=== PATIENT | male | born 1955 | race Caucasian/White ===

== ENCOUNTER 2017-06-27 12:50 | Emergency (ER) | payer BC ==
[2017-06-27] MEDS ORDERED: Ketorolac INJ* 30 MG/ML 1 ML VIAL IV PUSH ONE (14:01)
[2017-06-27 14:53] LABS: Hematocrit 37 % (42-52); Mean Corpuscular HGB Conc 35 g/dl (31-36); Mean Corpuscular Hemoglobin 33 pg (27-31); Mean Corpuscular Volume 94 fL (80-94); Mean Platelet Volume 8 um3 (7.4-10.4); Red Blood Count 3.99 10^6/ul (4.0-5.4); Red Cell Distribution Width 13 % (10.5-15); White Blood Count 8.9 10^3/ul (3.5-10.8)
[2017-06-27 15:09] LABS: Albumin 3.6 g/dL (3.2-5.2); BUN/Creatinine Ratio 32.9 (8-20); EGFR African American 127.4 (>60); EGFR Non-African American 99.1 (>60); Globulin 3.4 g/dL (2-4); Total Bilirubin 0.5 mg/dL (0.2-1.0)
[2017-06-27] MEDS ORDERED: Iohexol 300* (CONTRAST) 10 ML SDV IV ONE (15:14)
[2017-06-27 15:45] VITALS: BP 111/68
--- NOTE | 2017-06-27 16:02 | RAD ---
INDICATION: Redness and swelling on the LEFT side of the neck. Fever and chills. Neck stiffness. Suspect corresponding insect bite 2 days ago. COMPARISON: April 14, 2016 cervical spine MRI. TECHNIQUE: Multidetector CT images skull base to lung apices with 50 mL Omnipaque 300 IV contrast. Multiplanar reformation. REPORT: Clear visualized lung apices. Artifact from dental amalgam. Dermal and subcutaneous tissue plane edema along the LEFT neck from the supraclavicular region to the mandibular ramus level. No loculated abscess collection evident. Patent dominant RIGHT and smaller LEFT internal jugular veins. Minimal atherosclerotic plaque without hemodynamic significant stenosis at the carotid bifurcations. Unremarkable pharyngeal mucosal space contours. Symmetric parapharyngeal fat. Unremarkable parotid and submandibular glands as well as the thyroid gland. Negative for neck adenopathy. Clear paranasal sinuses and mastoid air spaces. Unremarkable orbital contents. Negative for suspicious osseous lesions. Multilevel cervical degenerative spondylosis and facet joint osteoarthritis without significant interval change compared with the April 14, 2016 MRI. Disc space narrowing is advanced at C4-C5, C5-C6, and C6-C7. IMPRESSION: Dermal and subcutaneous tissue plane edema along the LEFT neck from the supraclavicular region to the mandibular ramus level. No loculated abscess collection evident. Negative for neck adenopathy.
[2017-06-27] MEDS ORDERED: Cephalexin CAP* 500 MG PO ONE (16:18)
[2017-06-27] MEDS ORDERED: Sulfamethox/Trimethoprim DS 800/160* TAB PO ONE (16:18)
--- NOTE | 2017-07-16 15:18 | ED ---
Michelle Cole Edward, scribed for Geovani Mitchell MD on 06/27/17 at 1341 . Skin Complaint - HPI Summary HPI Summary: 62 y/o male presents to ED c/o red rash on the L side of the neck starting a few weeks ago. Pt c/o neck pain and bilateral neck stiffness (hard to turn) secondary to the rash. The rash is also pruritic. Pt felt he was bit a couple of weeks ago - started as a small bump on the L side of the neck. The erythema, edema and neck pain has gotten worse since the bite amaya first appeared. The erythema spreads to the L shoulder and the chest. Denies sore throat, pain when opening and closing mouth, and drainage. Associated sx: fevers, chills, and diaphoresis. PMHx chronic back pain. No PMHx DM. NKDA. - History of Current Complaint Chief Complaint: EDRashSkinAbscess Time Seen by Provider: 06/27/17 13:40 Stated Complaint: BITE ON NECK Hx Obtained From: Patient Onset/Duration: Started Weeks Ago - 2, Still Present Timing: Constant, Lasting Weeks Pain Intensity: 5 Pain Scale Used: 0-10 Numeric Skin Location: Neck - L side Character: Swelling, Pruritus, Pain, Redness Associated Signs & Symptoms: Diaphoresis, Fever, Chills, Rash - Allergy/Home Medications Allergies/Adverse Reactions: Allergies Allergy/AdvReac Type Severity Reaction Status Date / Time No Known Allergies Allergy Verified 03/02/17 08:02 PMH/Surg Hx/FS Hx/Imm Hx Previously Healthy: No Endocrine/Hematology History: Denies: Hx Diabetes Cardiovascular History: Denies: Hx Hypertension, Hx Pacemaker/ICD History: Denies: Hx Renal Disease Musculoskeletal History: Reports: Hx Arthritis - SHOULDERS, HIPS, Hx Osteoporosis Sensory History: Reports: Hx Contacts or Glasses - READING Denies: Hx Hearing Aid Opthamlomology History: Reports: Hx Contacts or Glasses - READING Neurological History: Reports: Other Neuro Impairments/Disorders - PAIN CLINIC PATIENT Psychiatric History: Denies: Hx Panic Disorder - Surgical History Surgery Procedure, Year, and Place: right total hip replacement. Rt SHOULDER - RTC Hx Anesthesia Reactions: No Infectious Disease History: Denies: Traveled Outside the [place] in Last 30 Days - Family History Known Family History: Positive: Other - [place] Negative: Cardiac Disease, Diabetes - Social History Occupation: Retired Alcohol Use: None Alcohol Amount: 2-3 beers/day Hx Substance Use: No Substance Use Type: Reports: None Hx Tobacco Use: Yes Smoking Status (MU): Current Every Day Smoker Type: Cigarettes Amount Used/How Often: 4-5 cigarettes per day Length of Time of Smoking/Using Tobacco: 1970 Have You Smoked in the Last Year: Yes Review of Systems Positive: Fever, Chills, Skin Diaphoresis Negative: Erythema ENT: Other - No pain opening and closing mouth Negative: Sore Throat Negative: Chest Pain Negative: Shortness Of Breath, Cough Negative: Abdominal Pain, Vomiting, Nausea Negative: dysuria, hematuria Positive: Arthralgia - Neck pain and stiffness, Myalgia - Chronic back pain. Negative: Edema Positive: Rash - L side of neck. No drainage Neurological: Other - No dizziness All Other Systems Reviewed And Are Negative: Yes Physical Exam - Summary Physical Exam Summary: Constitutional: Well-developed, Well-nourished, Alert. (-) Distressed Skin: Warm, Dry. Cellulitis from 2 inches below the clavicle extending to the posterior midline cervical to the level of T1 and out to the L shoulder joint. It is hot to touch and there is no induration. HENT: Normocephalic; Atraumatic Eyes: Conjunctiva normal Neck: Musculoskeletal ROM normal neck. (-) JVD, (-) Stridor, (-) Tracheal deviation. Meningismus as a result of the skin infection. Cardio: Rhythm regular, rate normal, Heart sounds normal; Intact distal pulses; The pedal pulses are 2+ and symmetric. Radial pulses are 2+ and symmetric. (-) Murmur Pulmonary/Chest wall: Effort normal. (-) Respiratory distress, (-) Wheezes, (-) Rales Abd: Soft, (-) Tenderness, (-) Distension, (-) Guarding, (-) Rebound Musculoskeletal: (-) Edema Lymph: (-) Cervical adenopathy Neuro: Alert, Oriented x3 Psych: Mood and affect Normal Triage Information Reviewed: Yes Vital Signs On Initial Exam: Initial Vitals Temp Pulse Resp BP Pulse Ox 98.9 F 66 18 140/86 98 06/27/17 12:58 06/27/17 12:58 06/27/17 12:58 06/27/17 12:58 06/27/17 12:58 Vital Signs Reviewed: Yes Diagnostics - Vital Signs Vital Signs Temp Pulse Resp BP Pulse Ox 06/27/17 12:58 98.9 F 66 18 140/86 98 - Laboratory Lab Results: Lab Results 06/27/17 06/27/17 06/27/17 Range/Units 14:35 14:35 14:35 WBC 8.9 (3.5-10.8) 10^3/ul RBC 3.99 L (4.0-5.4) 10^6/ul Hgb 13.0 L (14.0-18.0) g/dl Hct 37 L (42-52) % MCV 94 (80-94) fL MCH 33 H (27-31) pg MCHC 35 (31-36) g/dl RDW 13 (10.5-15) % Plt Count 451 H (150-450) 10^3/ul MPV 8 (7.4-10.4) um3 Neut % (Auto) 70.3 (38-83) % Lymph % (Auto) 19.0 L (25-47) % Hale % (Auto) 8.7 (1-9) % Eos % (Auto) 1.1 (0-6) % Baso % (Auto) 0.9 (0-2) % Absolute Neuts (auto) 6.2 (1.5-7.7) 10^3/ul Absolute Lymphs (auto) 1.7 (1.0-4.8) 10^3/ul Absolute Monos (auto) 0.8 (0-0.8) 10^3/ul Absolute Eos (auto) 0.1 (0-0.6) 10^3/ul Absolute Basos (auto) 0.1 (0-0.2) 10^3/ul Absolute Nucleated RBC 0.01 10^3/ul Nucleated RBC % 0.1 INR (Anticoag Therapy) 0.97 (0.89-1.11) APTT 29.8 (26.0-36.3) seconds Sodium 135 (133-145) mmol/L Potassium 4.0 (3.5-5.0) mmol/L Chloride 104 (101-111) mmol/L Carbon Dioxide 24 (22-32) mmol/L Anion Gap 7 (2-11) mmol/L BUN 26 H (6-24) mg/dL Creatinine 0.79 (0.67-1.17) mg/dL Est GFR ( Amer) 127.4 (>60) Est GFR (Non-Af Amer) 99.1 (>60) BUN/Creatinine Ratio 32.9 H (8-20) Glucose 91 (70-100) mg/dL Lactic Acid (0.5-2.0) mmol/L Calcium 9.0 (8.6-10.3) mg/dL Total Bilirubin 0.50 (0.2-1.0) mg/dL AST 32 (13-39) U/L ALT 57 H (7-52) U/L Alkaline Phosphatase 91 (34-104) U/L Total Protein 7.0 (6.4-8.9) g/dL Albumin 3.6 (3.2-5.2) g/dL Globulin 3.4 (2-4) g/dL Albumin/Globulin Ratio 1.1 (1-3) 06/27/17 Range/Units 14:35 WBC (3.5-10.8) 10^3/ul RBC (4.0-5.4) 10^6/ul Hgb (14.0-18.0) g/dl Hct (42-52) % MCV (80-94) fL MCH (27-31) pg MCHC (31-36) g/dl RDW (10.5-15) % Plt Count (150-450) 10^3/ul MPV (7.4-10.4) um3 Neut % (Auto) (38-83) % Lymph % (Auto) (25-47) % Hale % (Auto) (1-9) % Eos % (Auto) (0-6) % Baso % (Auto) (0-2) % Absolute Neuts (auto) (1.5-7.7) 10^3/ul Absolute Lymphs (auto) (1.0-4.8) 10^3/ul Absolute Monos (auto) (0-0.8) 10^3/ul Absolute Eos (auto) (0-0.6) 10^3/ul Absolute Basos (auto) (0-0.2) 10^3/ul Absolute Nucleated RBC 10^3/ul Nucleated RBC % INR (Anticoag Therapy) (0.89-1.11) APTT (26.0-36.3) seconds Sodium (133-145) mmol/L Potassium (3.5-5.0) mmol/L Chloride (101-111) mmol/L Carbon Dioxide (22-32) mmol/L Anion Gap (2-11) mmol/L BUN (6-24) mg/dL Creatinine (0.67-1.17) mg/dL Est GFR ( Amer) (>60) Est GFR (Non-Af Amer) (>60) BUN/Creatinine Ratio (8-20) Glucose (70-100) mg/dL Lactic Acid 0.7 (0.5-2.0) mmol/L Calcium (8.6-10.3) mg/dL Total Bilirubin (0.2-1.0) mg/dL AST (13-39) U/L ALT (7-52) U/L Alkaline Phosphatase (34-104) U/L Total Protein (6.4-8.9) g/dL Albumin (3.2-5.2) g/dL Globulin (2-4) g/dL Albumin/Globulin Ratio (1-3) Result Diagrams: 06/27/17 14:35 06/27/17 14:35 Lab Statement: Any lab studies that have been ordered have been reviewed, and results considered in the medical decision making process. - CT NECK CT CT Interpretation: Positive (See Comments) - Dermal and subcutaneous tissue plane edema along the LEFT neck from the supraclavicular region to the mandibular ramus level. No loculated abscess collection evident. Negative for neck adenopathy. CT Interpretation Completed By: Radiologist Re-Evaluation - Re-Evaluation 1 Re-Evaluation Time: 16:20 - Discussed patient care Course/Dx - Course Assessment/Plan: 62 y/o male presents to ED c/o red rash on the L side of the neck starting a few weeks ago. Pt c/o neck pain and bilateral neck stiffness ( hard to turn) secondary to the rash. The rash is also pruritic. Pt felt he was bit a couple of weeks ago. The erythema, edema and neck pain has gotten worse since the bite amaya first appeared. The erythema spreads to the L shoulder and the chest. Denies sore throat, pain when opening and closing mouth, and drainage. Associated sx: fevers, chills, diaphoresis. Started as a small bump on the L side of the neck. PMHx chronic back pain. No PMHx DM. NKDA. NECK CT SHOWS Dermal and subcutaneous tissue plane edema along the LEFT neck from the supraclavicular region to the mandibular ramus level. No loculated abscess collection evident. Negative for neck adenopathy. Pt will be d/c home with f/u with PCP in 2 days. Pt is instructed to increase pain medication as needed (1 tablet every 4-6 hours). Return to ED if he develops fevers. - Diagnoses Provider Diagnoses: Cellulitis, neck Discharge - Discharge Plan Condition: Stable Disposition: HOME Prescriptions: Cephalexin CAP* [Keflex CAP*] 500 mg PO QID #40 cap Sulfamethox/Trimethoprim DS* [Bactrim DS 800/160 TAB*] 1 tab PO BID #10 tab Patient Education Materials: Cellulitis (ED) Referrals: Guerrero Codrova MD [Primary Care Provider] - 3 Days (2-3 days) Additional Instructions: You can increase pain meds to 1 tablet every 4-6 hrs if needed. Please return to the ED if you develop fevers. The documentation as recorded by the Michelle thayer Edward accurately reflects the service I personally performed and the decisions made by , Geovani Mitchell MD.
== END 2017-06-27 16:45 | disposition home or self-care (01) ==
LOC: ED 12:50
DX: L03.221 Cellulitis of neck (principal); R50.9 Fever, unspecified; R61 Generalized hyperhidrosis; Z96.641 Presence of right artificial hip joint; F17.210 Nicotine dependence, cigarettes, uncomplicated
CPT/HCPCS: 36415; 70491; 80053; 83605; 85025; 85610; 85730; 96374; 99282; A9270-GY; J1885; Q9967